=== PATIENT | female | born 1950 | race Caucasian/White ===

== ENCOUNTER 2018-10-30 11:59 | Emergency (ER) | payer OTHER ==
[~2018-10-30] VITALS: Ht 157.5 cm; Wt 47.2 kg
[2018-10-30] MEDS ORDERED: KETO10TA2 PO (16:38)
[2018-10-30] MEDS ORDERED: TESSALON PERLE100 M1 PO (16:38)
[2018-10-30] MEDS ORDERED: OSEL75CA PO (16:38)
[2018-10-30] MEDS ORDERED: AIRBORNE EFFER1 EACH PO (16:38)
== END 2018-10-30 17:09 | disposition home or self-care (01) ==
LOC: ER 11:59
DX: J11.1 Influenza due to unidentified influenza virus with other respiratory manifestations (principal)